=== PATIENT | female | born 1945 | race Caucasian/White ===

== ENCOUNTER → 2017-01-31 | Outpatient (CLI) | payer MEDICARE, OTHER ==
[~2017-01-31] MED LIST: REGADENOSON 0.4 MG/5 ML DISP.SYRIN. IV ONE
--- NOTE | 2017-01-31 12:00 | PCVCIMAG ---
APPROVED REPORT Study performed: 01/31/2017 11:59:00 EXAM: Comprehensive 2D, Doppler, and color-flow Echocardiogram Patient Location: Echo lab Status: routine BSA: 1.93 HR: 79 bpmBP: 170/90 mmHg Rhythm: NSR Other Information Study Quality: Adequate Indications Hypertension/HDD Hyperlipidemia. Pre op Knee Surgery. Abnormal EKG. 2D Dimensions RVDd: 24.67 mmLVEF(%): 52.07 (>50%) IVSd: 7.00 (7-11mm)LVOT Diam: 20.27 (18-24mm) LVDd: 42.42 mm PWd: 7.84 (7-11mm)Ascending Ao: 28.41 (22-36mm) LVDs: 31.21 (25-40mm) Left Atrium: 36.33 (27-40mm) LV Single Plane 4CH: 46.67 % LV Single Plane 2CH: 67.03 %Raman's LVEF: 56.85 % Biplane EF: 59.6 % Volumes Left Atrial Volume (Systole) Single Plane 4CH: 33.26 mLSingle Plane 2CH: 23.86 mL LA ESV Index: 16.00 mL/m2 Aortic Valve AoV Peak Virgil.: 2.31 m/s AO Peak Gr.: 21.27 mmHgLVOT Max P.31 mmHg AO Mean Gr.: 11.90 mmHgLVOT Mean P.68 mmHg AO V2 Mean: 1.62 m/sLVOT Max V: 0.95 m/s AO V2 VTI: 45.42 cm JEREMIAH (VTI): 1.21 [id number] V1 VTI: 17.10 cm JEREMIAH Vmax: 1.32 cm2 AI Vmax: 4.37 m/s AI [place]: 2.90 m/s2 AI PHT: 436.53 ms Mitral Valve E/A Ratio: 0.7 MV Decel. Time: 157.25 ms MV E Max Virgil.: 0.80 m/s MV A Virgil.: 1.10 m/s MV PHT: 45.60 ms IVRT: 173.01 ms TDI E/Lateral E': 10.00E/Medial E': 8.89 Medial E' Virgil.: 0.09 m/s Lateral E' Virgil.: 0.08 m/s Pulmonary Valve PV Peak Gr.: 4.08 mmHg Pulmonary Vein P Vein S: 0.53 m/sP Vein A: 0.36 m/s P Vein D: 0.30 m/sP Vein A Dur.: 83.0 msec P Vein S/D Ratio: 1.77 Left Ventricle The left ventricle is normal size. There is normal LV segmental wall motion. There is normal left ventricular wall thickness. Left ventricular systolic function is normal. The left ventricular ejection fraction is within the normal range. LVEF is 60%. Grade I - abnormal relaxation pattern. Right Ventricle The right ventricle is normal size. The right ventricular systolic function is normal. Atria The left atrium size is normal. The right atrium size is normal. Aortic Valve The Aortic valve is sclerotic. Mild aortic regurgitation. Mitral Valve The mitral valve is normal in structure. There is no mitral valve regurgitation noted. No evidence of mitral valve stenosis. Tricuspid Valve The tricuspid valve is normal in structure. There is no tricuspid valve regurgitation noted. Pulmonic Valve The pulmonary valve is normal in structure. There is no pulmonic valvular regurgitation. Great Vessels The aortic root is normal in size. IVC is normal in size and collapses with >50% inspiration Pericardium There is no pericardial effusion. <Conclusion> The left ventricle is normal size. Left ventricular systolic function is normal. Grade I - abnormal relaxation pattern. The right ventricle is normal size. The left atrium size is normal. The Aortic valve is sclerotic. Mild aortic regurgitation. The mitral valve is normal in structure.
--- NOTE | 2017-01-31 14:29 | PCVCIMAG ---
APPROVED REPORT Exam: Nuclear Stress Test Indication: Dyspnea, Abnormal EKG, Pre-Operative CV evaluation Patient Location: Out-Patient Stress Nurse: Saloni Rodriguez RN, Lina Gray RN [place] Tech:DONNELL TrevinoMT Ht: 5 ft 3 in Wt: 200 lbs BSA: 1.93 m2 HR: 83 bpm BP: 172/79 mmHg BMI: 35.4 Rhythm: SR W/PVC'S Medical History Medical History: Hyperlipidemia, HTN, Age Medications: Atorvastatin, Metoprolol Allergies: No known drug allergies Pretest Chest Pain Characteristics: No chest pain Exercise History: Sedentary Physical Disabilities: Knees Meds Held (24 hrs): Metoprolol Stress Test Details Stress Test: Pharmacologic stress testing performed using 0.4 mg of regadenoson per 5 mL given IV over 10 seconds. Reason for pharmacologic stress test: physical limitation, knee. HR Resting HR: 8 bpmMax Heart Rate (APMHR): 150 bpm Max HR Achieved: 123 bpmTarget HR (85% APMHR): 127 bpm % of APMHR: 82 Recovery HR: 107 bpm BP Resting BP: 172/79 mmHg Max BP: 165/68 mmHg ECG Resting ECG: Sinus Rhythm, PVC's Stress ECG: Sinus Tachycardia ST Change: Non-ischemic Recovery ECG: Sinus Tachycardia Clinical Reason for Termination: Completed protocol Stress Symptoms: Abdominal discomfort, Nausea Exercise duration: 0 min 55 sec Symptoms resolved during recovery. NM EXAM: Myocardial Perfusion REST/STRESS Imaging Protocol: Rest Tc-99m/Stress Tc-99m 1 day Resting Data Rest SPECT myocardial perfusion imaging was performed in supine position 45 minutes following the intravenous injection of 15.9 mCi of Tc-99m Sestamibi. Time of rest injection: 1200 Date: 01/31/2017 Administration Route: IV Administration Site: Right Hand Pharmacologic Stress Pharmacologic stress test was performed by injecting Regadenoson 0.4 mg IV push followed by the intravenous injection of 47.8 mCi of Tc-99m Sestamibi. Time of stress injection: 1310 Date: 01/31/2017 Administration Route: IV Administration Site: Right Hand Gated Stress SPECT was performed 45 minutes after stress injection. The images were gated to evaluate regional wall motion and calculate left ventricular ejection fraction. Study Quality Study: Good Study Data Post stress, the left ventricular ejection was 60%.. SSS: 0 SRS: 2 SDS: 0 TID = 0.96. Perfusion Normal perfusion on both the stress and rest images. Wall Motion Normal left ventricular wall motion. Nuclear Conclusion ECG Findings: non-ischemic Clinical Findings: non-diagnostic Nuclear Findings: negative for ischemia This study is of low probability for inducible ischemia or prior infarct. Normal global and segmental LV systolic function.
== END | disposition home or self-care (01) ==
LOC: PCVCIMAG 10:46
PROVIDERS: ATTEND Internal Medicine Cardiovascular Disease
DX: I11.9 Hypertensive heart disease without heart failure (principal); R94.31 Abnormal electrocardiogram [ECG] [EKG]; E78.00 Pure hypercholesterolemia, unspecified; I08.0 Rheumatic disorders of both mitral and aortic valves; R06.00 Dyspnea, unspecified
CPT/HCPCS: 36415; 78452; 93005; 93017; 93306; A9500; G0463; J2785

== ENCOUNTER → 2017-06-01 | Outpatient (CLI) | payer MEDICARE, OTHER | END | disposition home or self-care (01) | LOC: PCVCCLINIC 10:00 | DX: I10 Essential (primary) hypertension (principal); R06.00 Dyspnea, unspecified; E78.00 Pure hypercholesterolemia, unspecified; R94.31 Abnormal electrocardiogram [ECG] [EKG]; Z79.82 Long term (current) use of aspirin; Z79.899 Other long term (current) drug therapy | CPT/HCPCS: 93005; G0463 ==

== ENCOUNTER → 2018-01-22 | Outpatient (CLI) | payer MEDICARE, OTHER | END | disposition home or self-care (01) | LOC: PCVCCLINIC 10:16 | PROVIDERS: ATTEND Internal Medicine Cardiovascular Disease | DX: I10 Essential (primary) hypertension (principal); R94.31 Abnormal electrocardiogram [ECG] [EKG]; E78.00 Pure hypercholesterolemia, unspecified; I25.10 Atherosclerotic heart disease of native coronary artery without angina pectoris; R06.09 Other forms of dyspnea; Z79.82 Long term (current) use of aspirin; Z79.899 Other long term (current) drug therapy | CPT/HCPCS: 93005; G0463 ==